=== PATIENT | female | born 1990 | race Caucasian/White ===

== ENCOUNTER 2018-06-16 20:01 | Emergency (ER) | payer MEDICAID ==
[~2018-06-16] VITALS: Ht 162.6 cm; Wt 68.0 kg
[~2018-06-16 20:01] MED LIST: IBUP-1986 PO
[2018-06-16 20:09] VITALS: BP 129/90
[2018-06-16] MEDS ORDERED: CLIN300C85 PO (21:22)
== END 2018-06-16 22:10 | disposition home or self-care (01) ==
LOC: ER 20:01
DX: J01.10 Acute frontal sinusitis, unspecified (principal)
CPT/HCPCS: 99283

== ENCOUNTER 2021-09-09 12:23 | Emergency (ER) | payer SELFPAY ==
[~2021-09-09] VITALS: Ht 162.6 cm; Wt 63.0 kg
[~2021-09-09 12:23] MED LIST changes: +CLIN-97 PO
[2021-09-09 13:03] VITALS: BP 136/82
== END 2021-09-09 16:00 | disposition left against medical advice (07) ==
LOC: ER 12:23
DX: F10.129 Alcohol abuse with intoxication, unspecified (principal); Y90.9 Presence of alcohol in blood, level not specified; Z53.21 Procedure and treatment not carried out due to patient leaving prior to being seen by health care provider